=== PATIENT | male | born 1945 | race Caucasian/White ===

== ENCOUNTER 2024-06-11 06:43 | Emergency (ER) | payer MEDICARE, SELFPAY ==
[2024-06-11 06:47] VITALS: BP 171/78; PULSE 58; RESP 16; TEMP 36.1; O2SAT 97; BMI 30.1
--- NOTE | 2024-06-11 06:53 | CRLHL7_ITS ---
For Patients: As a result of the Century Cures Act, medical imaging exams and procedure reports are released immediately into your electronic medical record. You may view this report before your referring provider. If you have questions, please contact your health care provider. INDICATION: Heel pain COMPARISON: None. TECHNIQUE: Three views left foot FINDINGS: No acute or healing fracture. No dislocation. 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 There is an associated talar beak. 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 More mild interphalangeal osteoarthritis. No focally destructive bone lesions. Calcaneal enthesophytes at the Achilles tendon insertion and plantar fascia origin, small. Atherosclerotic vascular calcifications. No foreign body. IMPRESSION: 1. No acute findings in the left foot. 2. Left calcaneal spurs. 3. Left calcaneonavicular coalition. 4. 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 Dictated by Halley Luis MD @ 06/11/2024 7:13:13 AM (Electronically Signed)
--- OUTSIDE RECORDS SUMMARY | 2024-06-11 07:08 | XMS_ITS | Clinical Summary ---
Author Organization [facility] Address [address] [place] [address] Care Team Providers Care Out And Out Cigar Maker Hand Name Role Phone Adams Gautam MD Primary Care Provider Allergies Active Allergy Reactions Criticality Noted Date Comments Cats (Fur, Dander, Saliva) Other - Describe In Comment Field 04/06/2017 Sneezing, watery eyes, runny nose Medications multivitamin (MVI) tablet Take 1 tablet by mouth once daily. 0 03/30/2017 Active amLODIPine (NORVASC) 5 mg tabletIndications :Essential hypertension Take 1 Tablet (5 mg) by mouth once daily. 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 Trigger finger (acquired) 02/26/2010 Colon polyp 02/02/2010 Overview (05/25/2019): Colonoscopy 01/2010 polyp repeat in 3 years Colonoscopy 03/2014 polyp repeat in 5 years Colonoscopy 03/2019 polyp, repeat in 5 years Radiation exposure Overview (01/23/2010): exposure to radium as a child Resolved Problems Problem Noted Date Diagnosed Date Resolved Date White coat syndrome without diagnosis of hypertension 05/31/2019 01/02/2024 Unspecified essential hypertension 02/26/2010 12/22/2021 Encounters Date Type Department Care Team Description 04/24/2024 Orders Only [facility] [address] [place] [address] Mynor Shane MD <No scans attached> from Last 3 Months Immunizations Immunization Administration Dates Next Due COVID-19 VACCINE SPIKEVAX (M ODERNA 50MCG/0.5ML) 12YO+ PFS 01/02/2024 COVID-19 vaccine (Pfizer-Bio NTech 30mcg/0.3mL) 12YO+ BIVALENT PF, MDV 09/20/2022,12/22/2021 Influenza, High-dose Inactivated 01/02/2019,12/27,01/22/2017 Influenza, High-dose Quadriv alent Inactivated 01/16/2021 Influenza, IIV3 (Age >=3 years) 01/11/20 03,01/30/2002,02/10/2000,1998 Influenza, Inactivated AIIV4 (Age 65+ Years) Preserv Free 12/27/2022,12/22/2021 Influenza, Inactivated IIV3 (Age 65+ Years) Preserv Free 01/02/2024,01/22/2017 Pneumococcal Conj 20-valent (Prevnar 20) 12/27/2022 Pneumococcal Poly,23-Valent (Pneumovax) 01/23/2010 Pneumococcal conj 13-Valent (Prevnar 13) 05/30/2014 Td (Age >=7 Years) 02/04/1999,10/22/1975 Tdap 01/13/2015 Zoster (Shingrix-RZV, recombinant) 03/18/2020, Family History Medical History Relation Name Comments Psychiatric illness Brother 2 depressi on, suicide Cancer Father leukemia; watch maker, exposed to radium Allergies Mother Other Mother glaucoma Cancer-colon Neg. 1 Cancer-prostate Neg. 2 Diabetes Neg. 3 Heart Disease Neg. 4 Unknown Sister 3 Unknown Sister 4 Anesthesia Problem No Family History Relation Name Status Comments Brother 1 (Age 40) suicide Brother 2 Father Mother Neg. 1 Neg. 2 Neg. 3 Neg. 4 Sister 1 Alive Sister 2 (Age 60) unknown ca use Sister 3 Sister 4 Social History Tobacco Use Types Packs/Day Years Used Date Smoking Tobacco: Former Cigarettes 1.5 31 0 03/28/1958 - 03/28/1989 Pipe Cigars Smokeless Tobacco: Never Tobacco Cessation:Counseling Given: No Alcohol Use Standard Drinks/Week Comments Yes 0 (1 standard drink = 0.6 oz pure alcohol) once weekly (though sometimes less often), 4-6 ounces of derrell PHQ-2 Answer Date Recorded PHQ-2 TOTAL SCORE 0 01/02/2024 Social Connections Answer Date Recorded Do you often feel lonely or isolated from those around you? 0 12/29/2023 Financial Resource Strain Answer Date R ecorded Difficulty of Paying Living Expenses 3 12/29/2023 Difficulty of Paying Living Expenses Not on file 12/29/2023 Food Insecurity Answer Date Recorded Do you worry your food will run out before you are able to buy more? 1 12/29/2023 Transportation Needs Answer Date Record ed Does lack of transportation keep you from medica l appointments? 1 12/29/2023 Does lack of transportation keep you from work, meetings or getting things that you need? 1 12/29/2023 Housing Stability Answer Date Recorded What is your housing situation today? 1 12/29/2023 Utilities Answer Date Recorded Do you have trouble paying f or utilities (for example, heat, electricity, water, phone)? 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 Not on file Not on file No t on file Obstetrics History Last Filed Vital Signs Vital Sign Reading Time Taken Comments Blood Pressure 148/75 03/05/2024 10:11 AM ADVERTISING CAMPAIGN MANAGER Pulse 57 03/05/2024 9:58 AM ADVERTISING CAMPAIGN MANAGER Temperature 36.9 C (98.5 F) 10/23/2019 10:08 AM CDT Respiratory Rate 16 04/11/2017 11:1 5 AM ADVERTISING CAMPAIGN MANAGER Oxygen Saturation 97% 03/05/2024 9:58 AM ADVERTISING CAMPAIGN MANAGER Inhaled Oxygen Concentration - - Weight 93.8 kg (206 lb 12.8 oz) 03/05/2024 9:58 AM ADVERTISING CAMPAIGN MANAGER Height 175.3 cm (5' 9) 01/02/2024 9:35 AM CDT Body Mass Index 30.54 01/02/2024 9:35 AM CDT Plan of Treatment Health Maintenance Due Date Last Done Comments RSV vaccine for adults or (1 - 1-dose 75+ series) 2019 COVID-19 vaccine series ( season) 2024 01/02/2024, 09/20/2022, 12/22/2021, Additional history exists BMI (ht and wt on same day) for age 18+ 01/01/2025 01/02/2024, 12/27/2022, 12/22/2021, Additional history exists Depression screening for age 12+ 01/01/2025 01/02/2024, 12/27/2022, 12/22/2021, Additional history exists Medicare Wellness for age 65+ 01/02/2025, 12/27/2022, 12/22/2021, Additional history exists Tetanus booster 01/13/2025 01/13/2015, 01/26, 10/22/1975 Tdap Completed 01/13/2015 Zoster (shingles) series for age 50+ Completed 03/18/2020, 01/21/2020 Pneumococcal series for age 50+ Completed 12/27/2022, 05/30/2014, 01/23/2010 Influenza Vaccine Completed 01/02/2024, , 12/22/2021, Additional history exists Insurance [employer] MED[employer]ARE ADVANTAGE MR Care Teams Out And Out Cigar Maker Hand Relationship Specialty Start Date End Date Adams Gautam MD [address] [place] [address] PCP - General Family Practice 05/23/14
--- NOTE | 2024-06-11 07:15 | ED.GENADULT ---
HPI - General Adult General Date Seen: 06/11/24 Chief complaint: Extremity Pain/Injury, Lower Stated complaint: L foot pain Time Seen by Provider: 06/11/24 06:49 History of Present Illness HPI narrative: Patient is an 79-year-old man who is here for evaluation of his left foot. Yesterday and today he has been having pain in his left heel which seems to get worse with ambulation. He denies any injuries. He has not had any swelling. No recent antibiotics. No erythema or fevers. No history of similar problems. Related Data Home Medications ?Medication ?Instructions ?Recorded ?Confirmed No Known Home Medications 09/30/22 06/11/24 Allergies Allergy/AdvReac Type Severity Reaction Status Date / Time No Known Allergies Allergy Unknown Unverified 09/30/22 11:25 [facility] Medical History (Updated 06/11/24 @ 07:24 by Petra Rodriguez MD) Foreign body foot/toe (~2008) Hand arthropathy (~2010) ?M19.049 - Primary osteoarthritis, unspecified hand (ICD-10) Surgical History (Updated 09/30/22 @ 11:26 by Nahomy Clay ~ RN, RN) Previous back surgery ?Z98.890 - Other specified postprocedural states (ICD-10) Exam Narrative: Exam Narrative: Vital signs reviewed. He tells me he has white coat hypertension. In general, alert, well-appearing elderly male. Extremities: Examination of the left foot shows no deformity, swelling, bruising, erythema or warmth. He has tenderness over the insertion of the Achilles tendon on the calcaneus. The Achilles itself is nontender without defect. Positive calf squeeze. He does not have any tenderness on the bottom of his foot over the plantar fascia. No other edema or tenderness of the lower extremity. skin: Warm dry well perfused. Const: Vital Signs, click to edit/add: Vital Signs - 24 hr 06/11/24 06:47 Temperature 97.0 F L Pulse Rate [Pulse Oximeter] 58 L Respiratory Rate 16 Blood Pressure [Ri ght Upper Arm] 171/78 H Pulse Oximetry 97 Oxygen Delivery Me thod Room Air Course Course ED Course: He had x-rays of the left foot which by my review do not show any acute findings. Degenerative changes are seen. Final radiology read is reviewed, he does have some mild spurring at the Achilles tendon as well as the plantar fascia. I do think with his exam that this represents Achilles tendinopathy. I do not feel any kind of defect to suggest that this is a K tear of the Achilles. He walks independently, we tried him in a walking boot. This helps with pain and he feels stable walking that way. Will send him home with a boot to be used when ambulatory. He can take it off when not walking. Conservative measures for now including rest and ice. If not improving over the next week or so would recommend follow-up either with primary doctor with Orthopedics. Return any time for significant worsening or new symptoms. Tylenol if needed. Vital Signs Vital signs: Initial Vital Signs Temperature 97.0 F L 06/11/24 06:47 Temperature Source Temporal Artery Scan 06/11/24 06:47 Pulse Rate 58 L 06/11/24 06:47 Pulse Rhythm Regular 06/11/24 06:47 Respiratory Rate 16 06/11/24 06:47 Blood Pressure 171/78 H 06/11/24 06:47 Blood Pressure Mean 109 H 06/11/24 06:47 Blood Pressure Position Sitting 06/11/24 06:47 Pulse Oximetry 97 06/11/24 06:47 Oxygen Delivery Method Room Air 06/11/24 06:47 Vital Signs Temperature 97.0 F L 06/11/24 06:47 Pulse Rate 58 L 06/11/24 06:47 Respiratory Rate 16 06/11/24 06:47 Blood Pressure 171/78 H 06/11/24 06:47 Pulse Oximetry 97 06/11/24 06:47 Oxygen Delivery Method Room Air 06/11/24 06:47 Temperature 97.0 F L 06/11/24 06:47 Pulse Rate 58 L 06/11/24 06:47 Respiratory Rate 16 06/11/24 06:47 Blood Pressure 171/78 H 06/11/24 06:47 Pulse Oximetry 97 06/11/24 06:47 Oxygen Delivery Method Room Air 06/11/24 06:47 Medical Decision Making Imaging Data Left foot x-ray: Attestation: I have reviewed the pertinent imaging results. Radiologist's impression: [address] [address] Diagnostic Imaging Report Patient: Elmer Bernal MR#: [id number] : 1945 Acct:[id number] Loc: ED Service Date: 06/11/[address]: Ordering Physician: Petra Rodriguez M.D. Date of Service: 06/11/24 Procedure(s): XR foot LT min 3V Accession Number(s): [id number] cc: Petra Rodriguez M.D.; Adams Gautam M.D.~ For Patients: As a result of the Cures Act, medical imaging exams and procedure reports are released immediately into your electronic medical record. You may view this report before your referring provider. If you have questions, please contact your health care provider. INDICATION: Heel pain COMPARISON: None. TECHNIQUE: Three views left foot FINDINGS: No acute or healing fracture. No dislocation. 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 There is an associated talar beak. 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 More mild interphalangeal osteoarthritis. No focally destructive bone lesions. Calcaneal enthesophytes at the Achilles tendon insertion and plantar fascia origin, small. Atherosclerotic vascular calcifications. No foreign body. IMPRESSION: 1. No acute findings in the left foot. 2. Left calcaneal spurs. 3. Left calcaneonavicular coalition. 4. 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 Dictated by Halley Luis MD @ 06/11/2024 7:13:13 AM Discharge Plan Discharge Clinical Impression: Insertional tendinopathy of left Achilles tendon Patient Disposition: Home, Self-Care Condition: Stable Instructions: Achilles Tendinitis (ED) Additional Instructions: Use the boot when you are up and walking around. It is okay to take it off when you are not walking. If you do not respond over the next week or so to conservative therapy including the boot and ice, I would recommend follow-up with your primary doctor or Orthopedics, our [facility] can be reached at [phone]. Return any time for acute worsening symptoms. You can use Tylenol as needed as well. Prescriptions: No Action No Known Home Medications Follow Up/Referrals: Adams Gautam MD [Primary Care Provider] - Stand Alone Forms: [employer] Info Instructions
== END 2024-06-11 07:29 | disposition home or self-care (01) ==
PROVIDERS: Emergency Provider Emergency Medicine; PCP Family Medicine
DX: M76.62 Achilles tendinitis, left leg (principal)
CPT/HCPCS: 73630; 99283

== ENCOUNTER 2024-09-27 02:26 | Emergency (ER) | payer MEDICARE, SELFPAY ==
--- OUTSIDE RECORDS SUMMARY | 2024-09-27 02:30 | XMS_ITS | Clinical Summary ---
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 Not on file Not on file No t on file Obstetrics History Last Filed Vital Signs Vital Sign Reading Time Taken Comments Blood Pressure 148/75 03/05/2024 10:11 AM GRAD INTERN Pulse 57 03/05/2024 9:58 AM GRAD INTERN Temperature 36.9 C (98.5 F) 10/23/2019 10:08 AM CDT Respiratory Rate 16 04/11/2017 11:1 5 AM GRAD INTERN Oxygen Saturation 97% 03/05/2024 9:58 AM GRAD INTERN Inhaled Oxygen Concentration - - Weight 93.8 kg (206 lb 12.8 oz) 03/05/2024 9:58 AM GRAD INTERN Height 175.3 cm (5' 9) 01/02/2024 9:35 [...] history exists Medicare Wellness for age 65+ 01/02/2025 01/02/2024, 12/27/2022, 12/22/2021, Additional history exists Tetanus booster 01/13/2025 01/13/2015, 01/26, 10/22/1975 ([place]) Tdap Completed 01/13/2015 Zoster (shingles) series for age 50+ Completed 03/18/2020, 01/21/2020 Pneumococcal series for age 50+ Completed 12/27/2022, 05/30/2014, 01/23/2010 Influenza Vaccine Completed 01/02/2024, , 12/22/2021, Additional history exists Hepatitis B series for 19+ Aged Out N o longer eligible based on patient's age to complete this topic Insurance [facility] MEDICARE ADVANTAGE MR Care Teams Storm Sash Maker Relationship Specialty Start Date End Date Adams Gautam MD [address] [place] [address] PCP - General Family Practice 05/23/14
[2024-09-27 02:31] VITALS: BP 173/79; PULSE 71; RESP 18; TEMP 36.9; O2SAT 99; BMI 29.8
--- NOTE | 2024-09-27 02:54 | ED_ITS ---
HPI - General Adult General Chief complaint: Skin/Abscess/Foreign Body Stated complaint: blister on R foot Time Seen by Provider: 09/27/24 02:38 Source: patient Mode of arrival: ambulatory Limitations: no limitations History of Present Illness HPI narrative: 79-year-old male presents to the emergency department with a blister on his right foot, dorsal surface at the base of the webbing of the 4th and 5th toe. It was tender at home tonight. He did not try taking any Tylenol or ibuprofen before coming to the emergency department in the wee hours of the morning. He states that he is not immunocompromised, has a history of vascular disease or diabetes. Has not tried any home treatments prior to coming to the ER. He does report that he has a history of an Achilles tendon injury. He swears this issues that he is currently wearing he has had for several weeks and they are ?very good shoes?. Apparently they were recommended by his instructional systems design consultant. He adamantly denies that he could be having a wetness issue in the foot and shows me a pair of medium quality cotton socks that he is currently wearing. They are clean and do not have any signs of significant blood or unusual odor. He denies itch or skin injury. He was concerned that this blister could be a bite and that it needed medical opinion. He denies any significant past medical history. Medications and allergies are reviewed. Prior prescription for amlodipine for hypertension noted. Nonsmoker. ROS is notable for no other generalized, skin or musculoskeletal changes. Related Data Home Medications ?Medication ?Instructions ?Recorded ?Confirmed No Known Home Medications 09/30/2205/26 Allergies Allergy/AdvReac Type Severity Reaction Status Date / Time No Known Allergies Allergy Unknown Unverified 09/30/22 11:25 [facility] Medical History Foreign body foot/toe (~2008) Hand arthropathy (~2010) ?M19.049 - Primary osteoarthritis, unspecified hand (ICD-10) Surgical History Previous back surgery ?Z98.890 - Other specified postprocedural states (ICD-10) Social History Smoking Status: Never smoker Do you use any of these nicotine containing products: None Second hand tobacco smoke exposure: No How often do you have a drink containing alcohol: monthly or less How many standard drinks containing alcohol do you have on a typical day: 1 or 2 How often do you have six or more drinks on one occasion: Never AUDIT-C Alcohol total score: 1 Non-prescribed substance use: denies use Exam Const: Vital Signs, click to edit/add: Vital Signs - 24 hr 09/27/24 02:31 Temperature 98.4 F Pulse Rate [Pulse Oximeter] 71 Respiratory Rate 18 Blood Pressure [Ri ght Upper Arm] 173/79 H Pulse Oximetry 99 Oxygen Delivery Me thod Room Air Documenting provider has reviewed patient's vital signs: yes Common normals: no apparent distress General appearance: comfortable HENMT: Common normals: normocephalic Head and scalp: normocephalic Face and sinus: normal facial exam Eye: General eye: normal appearance of both eyes Resp: Common normals: normal respiratory effort Effort & inspection: able to speak in complete sentences Cardio: Other: Normal dorsalis pedis pulses on right with regular rate and rhythm. Normal capillary refill in all toes. Extremity: Other: Right ankle appears grossly normal with no swelling, bruising or deformity. The toes do have some arthritic changes but no signs of effusion, acute redness or trauma. Nails are not dystrophic. The area in question is a 1 cm simple bliste r at the base of the 4th and 5th dorsal toe webbing. Gentle palpation releases simple clear fluid from and already draining pore. No unusual odor, bleeding or purulent drainage. There is no surrounding redness. There are no signs of intertrigo between the toes, tinea, cracking or other areas of wetness. The bottom of the foot does not reveal any abnormality. Midfoot and heel are also normal. MTP joints all appear normal. Psych: Mood and affect: euthymic mood Insight: fair Judgement: fair Skin: Narrative: No other rashes, blisters or abnormalities noted. Course Course ED Course: Counseled patient that there are no signs of infection or bite. He is low risk for abscess, osteomyelitis or other complication. I counseled patient that this is most likely from rubbing and is likely to happen again. These are common in the summer due to wetness. He is adamant that issues could not possibly be the cause as they are very good shoes. I let him know that this is likely still from rubbing but he does have good quality shoes. Often, it is improper walking technique, aging of the nerves in the foot, wetness from sweat, wet grass and other external factors that will cause this. Patient seems quite dismissive of this diagnosis. Area is dried with sterile gauze and then covered with a layer of Dermabond as a protectant. I also discussed weba-yur-wjebzwn products like moleskin that may be helpful in preventing blisters. Most importantly, I counseled him that he really needs to keep the area dry, even potentially removing his shoes every 90 minutes during the day as well as his socks, letting the area dry completely and and re-applying dry socks and his shoes. It will take several days for this to heal. The Dermabond will flake off on its own. If he is unable to figure out how to keep the rubbing from causing blisters, he should follow up with a foot doctor during the daylight hours. Signs and symptoms of infection were discussed and also written as indications to come to an emergency room. Patient is counseled on use of [id number]-[id number] Tylenol and ibuprofen as needed for this mild discomfort. Vital Signs Vital signs: Initial Vital Signs Temperature 98.4 F 09/27/24 02:31 Temperature Source Temporal Artery Scan 09/27/24 02:31 Pulse Rate 71 09/27/24 02:31 Pulse Rhythm Regular 09/27/24 02:31 Respiratory Rate 18 09/27/24 02:31 Blood Pressure 173/79 H 09/27/24 02:31 Blood Pressure Mean 110 H 09/27/24 02:31 Blood Pressure Position Sitting 09/27/24 02:31 Pulse Oximetry 99 09/27/24 02:31 Oxygen Delivery Method Room Air 09/27/24 02:31 Vital Signs Temperature 98.4 F 09/27/24 02:31 Pulse Rate 71 09/27/24 02:31 Respiratory Rate 18 09/27/24 02:31 Blood Pressure 173/79 H 09/27/24 02:31 Pulse Oximetry 99 09/27/24 02:31 Oxygen Delivery Method Room Air 09/27/24 02:31 Temperature 98.4 F 09/27/24 02:31 Pulse Rate 71 09/27/24 02:31 Respiratory Rate 18 09/27/24 02:31 Blood Pressure 173/79 H 09/27/24 02:31 Pulse Oximetry 99 09/27/24 02:31 Oxygen Delivery Method Room Air 09/27/24 02:31 Discharge Plan Discharge Clinical Impression: Blister of foot without infection Patient Disposition: Home, Self-Care Condition: Stable Instructions: Blister (ED) Additional Instructions: As we discussed, this is a simple blister on your foot. There are no signs of infection or necrosis. I do not believe that this was caused by an insect bite. This is caused by a rubbing type of injury either from wetness between the toes causing the skin to rub on itself, rubbing from improper fitting shoes or for simply from improper walking technique in good shoes. These are more common in the summer months due to the heat and persistent wetness. If you start running a high fever, have increased redness or purulent drainage, you should have this re-evaluated. You should come into the emergency room if you have severe weakness, high fever or acute neurological changes. As discussed, I placed a thin layer of skin glue over the top of the skin to help protect it from rubbing. My hope is that this is enough to allow things to heal properly. Your job is to keep the area clean and very dry, avoid moisture and rubbing. My recommendation would be to take your socks and shoes off every 90 minutes to let the toe and foot area completely dry for at least a 1/2 hour before putting on a new dry pair of socks and your shoes again during the day. If it is not healing, I would recommend that you make an appointment with the foot doctor to discuss different types of pads and protective devices that are not available in emergency department in the middle of the night to help prevent this problem. For pain, I recommend Tylenol 650 mg every 6 hours and or ibuprofen 600 mg every 6 hours as needed for this mild discomfort. Activity Level: Activity as Tolerated Discharge Diet: Regular Prescriptions: No Action No Known Home Medications Follow Up/Referrals: Adams Gautam MD [Primary Care Provider, Family Practice] Stand Alone Forms: [facility] Info Instructions
== END 2024-09-27 03:00 | disposition home or self-care (01) ==
LOC: ED 02:55
PROVIDERS: Emergency Provider Family Medicine; PCP Family Medicine
DX: S90.821A Blister (nonthermal), right foot, initial encounter (principal)
CPT/HCPCS: 99283